=== PATIENT | male | born 1955 | race Caucasian/White ===

== ENCOUNTER → 2017-07-03 | Outpatient (CLI) | payer OTHER ==
[~2017-07-03] MED LIST: ASPI81TA28 PO; CETI10TA84 PO; FERR324T PO; GLUCTAB7 PO; MONT1TAB3 PO; MULT-506 PO; PLMIN90 INH; PRAV20TA PO; PULMICORT INH; WARF1TAB PO
== END | disposition home or self-care (01) ==
LOC: C.CPL 10:58
PROVIDERS: ATTEND Orthopaedic Surgery Sports Medicine
DX: Z01.810 Encounter for preprocedural cardiovascular examination (principal); M19.079 Primary osteoarthritis, unspecified ankle and foot

== ENCOUNTER → 2017-07-15 | Day surgery (SDC) | payer OTHER ==
[2017-07-09 14:49] VITALS: Ht 167.6 cm; Wt 75.0 kg
[~2017-07-15] VITALS: Ht 167.6 cm; Wt 75.0 kg
[~2017-07-15] MED LIST changes: +ACET-1256 PO; +ATROPINE SULFATE 0.1 MG/ML 5ML SYR IV PRN; +CEFAZOLIN 1000MG IV PUSH 7.5 ML IV SCH; +CEFAZOLIN SOD 1 GM VIAL ONE; +CEFAZOLIN SOD 1000MG/7.5 ML IV PUSH IV SCH; +DEXAMETHASONE SOD INJ 4 MG/ML VIAL ONE; +EpHEDrine SULFATE INJ 50 MG/ML AMP IV PRN; +FENTANYL CITRATE INJ 50 MCG/1 ML 2 ML VIAL IV PRN; +FENTANYL CITRATE INJ 50 MCG/1 ML 2 ML VIAL ONE; -FERR324T PO; -GLUCTAB7 PO; +LACTATED RINGER'S 1000ML 1,000 ML IV SCH; +LIDOCAINE HCL 2% 2 ML VIAL (20MG/ML) ONE; +MIDAZOLAM HCL 1 MG/ML 2ML VIAL ONE; +ONDANSETRON INJ 2 MG/ML 2 ML VIAL IV PRN; +ONDANSETRON INJ 2 MG/ML 2 ML VIAL ONE; +PROPOFOL IV EMULSION 10 MG/ML 20 ML VIAL IV ONE; -PULMICORT INH; +SODIUM CHLORIDE 0.9% 1000ML 1,000 ML IV SCH; +TRAM-453 PO; +TRAMADOL HCL 50 MG TAB PO PRN; -WARF1TAB PO
--- NOTE | 2017-07-15 11:12 | History & Physical Bridge - [place] ---
H&P Re-Evaluation Bridge Note: I have examined the patient, reviewed the History & Physical and in the interval since the performance of the History & Physical I have noted the following changes of clinical significance: No changes noted
[2017-07-15] MEDS: BUPIVACAINE/EPINEPHRINE 0.5% MPF 1:200,000 30 ML VIAL ONE ×2 (12:04→12:55)
--- NOTE | 2017-07-15 13:07 | [facility] Post Operative Brief Note ---
Immediate Operative Summary Operative Date Jul 15, 2017. Pre-Operative Diagnosis Right Great Toe Joint Osteoarthritis, Pain Post-Operative Diagnosis Same Procedure(s) Performed Right Great Toe Fusion Surgeon Dr. Santacruz Cable Installer Surgeon(s) Miriam Freeman PA-C Estimated Blood Loss Minimal Findings Consistent with Post-Op Diagnosis Specimens None Drains None Anesthesia Type General Complication(s) none Disposition Accompanied Pt To Recovery: yes Disposition: Recovery Room / PACU
--- NOTE | 2017-07-15 13:12 | Discharge Instructions-SurgCtr ---
Discharge Instructions Date of Service Jul 15, 2017. 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 Post Anesthesia Instructions: If you have had General Anesthesia or IV Sedation: * Do not drive today. * Resume driving when surgeon permits. * Do not make important decisions or sign legal documents today. * Call surgeon for: 1. Temperature elevations greater than 101 degrees F. 2. Uncontrollable pain. 3. Excessive bleeding. 4. Persistent nausea and vomiting. 5. Medication intolerance (nausea, vomiting or rash). * For nausea and vomiting use only clear liquids such as: tea, soda, bouillon until nausea subsides, then gradually increase diet as tolerated. * If you have any concerns or questions, call your surgeon's office. If physician is unavailable and it is an emergency, call 911 or go to the nearest emergency room. . Instructions / Follow-Up Instructions / Follow-Up MEDICATIONS: * Resume previous medications unless instructed otherwise by your surgeon. * Always take pain medication on a full stomach or with food to avoid upset stomach. * Do not drink alcohol or drive while taking narcotics. * Ibuprofen or Tylenol may be taken if narcotic not needed. SPECIAL CARE INSTRUCTIONS: __ None _x_ Keep extremity elevated and iced x 48 hours; apply ice 20-30 minutes 8-10 times/day. May remove at night. __ Crutches __ May discard when able __ Brace/Post-op shoe __ 24 hrs/day __ Remove at night _x_ Dressing _x_ Maintain until seen in office, may shower with plastic over site __ Remove dressings in 24-48 hours and then may shower __ Cover incisions with band-aids after showering __ Do not remove steri-strips Call physician if chills or temperature rises above 102 degrees or pain unrelieved by prescribed pain medications. Office [phone] follow up in 2 weeks Diet Recommendations Home Diet: resume previous diet Procedures Procedures Performed: Right Great Toe Fusion Pending Studies Studies pending at discharge: no Medical Emergencies . Who to Call and When: Medical Emergencies: If at any time you feel your situation is an emergency, please call 911 immediately. . Non-Emergent Contact Non-Emergency issues call your: Surgeon . . "Provider Documentation" section prepared by Ronald Freeman. .
--- NOTE | 2017-07-15 13:20 | DIAGNOSTIC IMAGING REPORT ---
RIGHT FIRST TOE, MIN 2 VIEWS CLINICAL HISTORY: RIGHT GREAT TOE FUSION COMPARISON STUDY: Right foot 04/16/2017. FLUOROSCOPY TIME: 18 seconds.. FINDINGS: 3 fluoroscopic spot images of the right first toe. There is a dorsal cortical plate transfixed with screws and a single screw fusing the first MTP joint. The hardware appears intact. No fracture or dislocation. IMPRESSION: Fluoroscopy provided for fusion of the first MTP joint. Electronically signed by: Leander Lamas M.D. 07/15/2017 1:18 PM Dictated Date/Time: 07/15/2017 1:14 PM
[2017-07-15 14:21] VITALS: TEMP 36.6
[2017-07-15 14:47] VITALS: BP 130/81; PULSE 61; O2SAT 98
--- NOTE | 2017-07-15 15:02 | Anesthesia Progress Nt - [facility] ---
Anesthesia Post Op Note Date & Time Jul 15, 2017 at 14:53 Vital Signs Pain Intensity: 0 Vital Signs Past 12 Hours Date Time Temp Pulse Resp B/P (MAP) Pulse Ox O2 Delivery O2 Flow Rate FiO2 07/15/17 14:47 61 14 130/81 (97) 98 Room Air 07/15/17 14:21 36.6 61 16 132/79 (96) 95 Room Air 07/15/17 14:15 67 21 137/92 99 07/15/17 14:15 68 21 07/15/17 14:11 36.9 65 12 137/92 98 Room Air 07/15/17 14:10 68 20 137/86 98 07/15/17 14:10 69 20 07/15/17 14:07 137/85 07/15/17 14:06 149/100 07/15/17 14:05 72 17 07/15/17 14:05 74 17 98 07/15/17 14:00 63 7 07/15/17 14:00 63 7 141/82 99 07/15/17 13:55 65 2 147/87 94 07/15/17 13:55 65 2 07/15/17 13:50 65 8 126/79 97 07/15/17 13:50 65 8 07/15/17 13:45 69 3 07/15/17 13:45 68 3 136/81 95 07/15/17 13:40 68 17 07/15/17 13:40 70 17 143/95 100 07/15/17 13:35 72 20 07/15/17 13:35 72 20 145/87 100 07/15/17 13:30 80 14 07/15/17 13:30 80 14 153/105 100 07/15/17 13:27 142/97 07/15/17 13:25 83 22 100 07/15/17 13:25 83 22 07/15/17 13:21 136/88 07/15/17 13:20 84 13 07/15/17 13:20 85 13 99 07/15/17 13:16 135/76 07/15/17 13:15 91 16 98 07/15/17 13:15 91 16 07/15/17 13:10 96 155/85 98 07/15/17 13:10 96 07/15/17 13:10 36.8 93 16 155/85 97 Mask 6 07/15/17 10:23 36.6 65 16 128/90 (103) 97 Room Air Notes Mental Status: alert / awake / arousable, participated in evaluation Pt Amnestic to Procedure: Yes Nausea / Vomiting: adequately controlled Pain: adequately controlled Airway Patency, RR, SpO2: stable & adequate BP & HR: stable & adequate Hydration State: stable & adequate Anesthetic Complications: no major complications apparent The patient is a 61 y/o male with a hx of Asthma, recent URI and DLD who is s/ p R great toe fusion with Dr. Santacruz. The patient did well intraoperatively with no issues under GA. In recovery, the patient complained of a sharp pain moving from one side of his chest to the upper at about the nipple line. He denied any sensation of pressure, heaviness or squeezing/tightness or association with deep breathing. He also denied nausea, radiation down his arms or up his jaw, shortness of breath, lightheaded or dizziness. His vital signs were all stable. His HR was regular and lungs were clear to auscultation bilaterally. An EKG was done and showed NSR HR 74 with no ischemic changes. The patient's pain subsided on its own within several minutes and never returned. The patient continues to do well in recovery with no complaints. I told him that the pain was likely musculoskeletal in origin versus GI upset/gas as the EKG was normal and it resolved quickly on its own. I did instruct the patient, however to go to the ED if he has any chest pain, shortness of breath, lightheaded or dizziness or with any other concerns. He understands and agrees.
--- NOTE | 2017-07-15 19:04 | OPERATIVE REPORT ---
DATE OF OPERATION: 07/15/2017 SURGEON: Richie Santacruz MD TRANSMISSION CALIBRATION ENGINEER: DALTON Ceja PREOPERATIVE DIAGNOSIS: Right great toe first metatarsophalangeal degenerative joint disease. POSTOPERATIVE DIAGNOSIS: Same. PROCEDURE PERFORMED: Right first MTP joint arthrodesis. COMPLICATIONS: None. ESTIMATED BLOOD LOSS: Minimal. TOURNIQUET TIME: 61 minutes at 300 mmHg. ANESTHESIA: General. SPECIMENS: None. OPERATIVE INDICATIONS: The patient is a 61-year-old gentleman who has a several year history of increasing right great toe pain and discomfort, stiffness. He has been through extensive conservative treatment and failed. His x-ray showed extensive arthritis of his first MTP joint. The patient indicates for arthrodesis. OPERATIVE IMPLANTS: Operative implants consisted of: 1. A Biomet 4.0 x 34 mm partially threaded titanium cannulated screw. 2. A Biomet 2.4 mm ALPS right first MTP joint arthrodesis plate. 3. A 2.4 mm titanium cortical screw. 4. A 2.4 mm cortical locking screws x6. OPERATIVE PROCEDURE: The patient taken to the operating room, identified, and placed on the operative table in supine position. All contact areas were appropriately padded. IV antibiotics provided by anesthesia team. General anesthetic was implemented by anesthesia team. A right thigh tourniquet was then placed. The right ankle was then cleaned with alcohol. I then performed an ankle block using about 23 mL of 0.5% Marcaine with epinephrine. The right foot, ankle, and leg were then prepped and draped in usual sterile fashion. The right leg was elevated and exsanguinated with Esmarch and tourniquet was placed at 300 mmHg. A dorsal medial approach to the first MTP joint was then performed through a longitudinal incision beginning at the IP joint of the toe and extending proximally over the MTP joint and then proximal about 4 cm. Sharp dissection was carried out through the subcutaneous tissue down to the level of the MTP joint capsule. I then made an incision just medial to the EHL tendon about 3 mm extended this distally almost all the way to the IP joint as his proximal phalanx was quite small and then proximally over the distal portion of the metatarsal. I then skeletonized the MTP joint. I then used a rongeur to debride the osteophytes off the proximal portion of the proximal phalanx as well as the metatarsal head. I then placed a 1.6 mm guidewire in the central aspect of the metatarsal head and then over reamed this with a 22 mm cone reamer followed by the 20 mm which seemed to be the most appropriate size for this gentleman. I then used the 1.6 guidewire to create multiple drill holes in the distal aspect of the metatarsal head for bleeding and bony healing. Attention was then drawn to the proximal phalanx. A 1.6 guidewire was placed in the central aspect of the proximal phalanx joint surface. I then used a 20 mm cup reamer to remove the cartilage of the proximal phalanx and create a mating surface to the metatarsal head. Once this was complete, I used 1.[address] some additional drill holes in the proximal phalanx. I then irrigated the wound extensively. I then placed a 1.6 mm guidewire from inside the joint in the central aspect of the metatarsal head and then proximally and medially at the mid aspect of the metatarsal. This was then withdrawn, the MTP joint was placed in optimal alignment in about 5-10 degrees of valgus and about 20 degrees of dorsiflexion and the guidewire was advanced over this. I verified the position of this and was measured. I then used the cannulated drill to drill the near cortex and then placed a 34 mm partially threaded 4.0 titanium cannulated screw. This provided excellent fixation. I then contoured the 2.4 mm MTP joint fusion plate to the dorsal aspect of the construct. It did not require much contouring. I then fixed it proximally with a single 2.4 mm cortical screw. It was then fixed distally with three 2.4 mm cortical locking screws and then proximally with three additional 2.4 mm cortical locking screws. X-ray was brought in. All screws were of appropriate length. Attention was then drawn toward closing. I irrigated the wound extensively. I then did place some bone graft from the osteophytes around the joint surface, particularly laterally. I then just closed the joint capsule with 2-0 Vicryl suture in a [id number] fashion. The tourniquet was then let down for a tourniquet time of 61 minutes. Hemostasis was assured with use of electrocautery. The subcutaneous tissue was then closed with 2-0 Dexon suture in a buried interrupted fashion. Skin was then closed with 4-0 nylon suture in a horizontal mattress fashion. The toe was then cleaned and dried and a sterile dressing of Xeroform, 4 x 4's, sterile cast padding and a Coban wrap followed by an IPOS shoe were applied. The patient then brought out of general anesthesia and transferred to the recovery room in stable condition. The patient tolerated the procedure with no complications. All needle and sponge counts were correct at the end of the operation. I attest to the content of the Intraoperative Record and any orders documented therein. Any exception s are noted below.
== END | disposition home or self-care (01) ==
LOC: X.SURG 10:10
PROVIDERS: ATTEND Orthopaedic Surgery Sports Medicine
DX: M19.071 Primary osteoarthritis, right ankle and foot (principal); J45.909 Unspecified asthma, uncomplicated; Z98.890 Other specified postprocedural states; Z79.899 Other long term (current) drug therapy; Z79.82 Long term (current) use of aspirin; Z96.652 Presence of left artificial knee joint

== ENCOUNTER 2023-06-16 10:40 | Observation (INO) ==
--- NOTE | 2023-05-19 09:14 | PAT Medication Instructions ---
Medication Instructions Date of Service May 19, 2023 Home Medications Medication Instructions Recorded ondansetron 4 mg disintegrating 4 mg PO Q4H PRN nausea and 03/25/20 tablet vomiting #8 tabs amoxicillin 500 mg tablet 2,000 mg (4 x 500 mg) PO ONCE #4 03/04/23 tabs acetaminophen 500 mg tablet (Tylenol Extra Strength) 1,000 mg PO Q6H PRN Pain albuterol sulfate 90 mcg/actuation aerosol inhaler 2 puff inhalation Q4H PRN Shortness Of Breath Or Wheezing aspirin 81 mg tablet,delayed release 81 mg PO HS budesonide 180 mcg/actuation breath activated powder inhaler (Pulmicort Flexhaler) 1 inh inhalation BID cetirizine 10 mg tablet (Zyrtec) 10 mg PO HS montelukast 10 mg tablet (Singulair) 10 mg PO HS multivitamin 1 tab PO QAM ondansetron 4 mg disintegrating tablet 4 mg PO Q4H PRN nausea and vomiting pravastatin 20 mg tablet 20 mg PO HS amoxicillin 500 mg tablet 2,000 mg (4 x 500 mg) PO ONCE turmeric root extract 500 mg capsule 500 mg PO QAM Continue as directed amoxicillin 500 mg tablet 2,000 mg (4 x 500 mg) PO ONCE ASK your prescriber and surgeon aspirin 81 mg tablet,delayed release 81 mg PO HS STOP taking 2 weeks before surgery (or as soon as possible if surgery is within 2 weeks) turmeric root extract 500 mg capsule 500 mg PO QAM DO NOT take the morning of surgery multivitamin 1 tab PO QAM Take morning of surgery With a small sip of water, OTHERWISE NOTHING TO EAT OR DRINK AFTER MIDNIGHT: acetaminophen 500 mg tablet (Tylenol Extra Strength) 1,000 mg PO Q6H PRN Pain (if needed) albuterol sulfate 90 mcg/actuation aerosol inhaler 2 puff inhalation Q4H PRN Shortness Of Breath Or Wheezing (use if needed; please bring rescue inhaler with you to hospital day of surgery if possible) budesonide 180 mcg/actuation breath activated powder inhaler (Pulmicort Flexhaler) 1 inh inhalation BID ondansetron 4 mg disintegrating tablet 4 mg PO Q4H PRN nausea and vomiting (if needed) Take evening before surgery acetaminophen 500 mg tablet (Tylenol Extra Strength) 1,000 mg PO Q6H PRN Pain (if needed) albuterol sulfate 90 mcg/actuation aerosol inhaler 2 puff inhalation Q4H PRN Shortness Of Breath Or Wheezing (if needed) budesonide 180 mcg/actuation breath activated powder inhaler (Pulmicort Flexhaler) 1 inh inhalation BID cetirizine 10 mg tablet (Zyrtec) 10 mg PO HS montelukast 10 mg tablet (Singulair) 10 mg PO HS ondansetron 4 mg disintegrating tablet 4 mg PO Q4H PRN nausea and vomiting (if needed) pravastatin 20 mg tablet 20 mg PO HS Other Notes If you have any questions please call us at [phone] or [phone] or [phone] or [phone]
--- NOTE | 2023-05-25 10:51 | Anesthesiology Consultation ---
Date of Service May 25, 2023 Assessment & Plan (1) Encounter for pre-operative examination: - Outpatient joint assessment: Patient is currently scheduled for inpatient pathway. If re-evaluated and patient/surgeon requests outpatient pathway, patient is acceptable candidate for outpatient joint program from anesthesia standpoint pending surgeon's office assessment of pt motivation/support/completion of same day joint program preop requirements. Chart Review Chart Review: Acceptable Risk for Surgery and Patient seen in Pre Admission Testing Teaching & Discussion Pre-Anesthesia Teaching/Discussion Notes: Instructed NPO after midnight before surgery, except medications with 15 cc of water. Medication instructions provided according to the PAT guidelines. History Surgery Operation Date: 06/16/23 09:10 Proposed Procedures p Right Total Knee Arthroplasty - Richie Santacruz MD Height/Weight Height: 5 ft 6 in Weight: 76.6 kg Allergies Allergy/AdvReac Type Severity Reaction Status Date / Time No Known Allergies Allergy Verified 05/19/23 07:37 Medications Home Medications Medication Instructions Recorded Confirmed Last Taken acetaminophen 500 mg tablet 1,000 mg PO Q6H PRN Pain 03/25/20 05/19/23 Unknown (Tylenol Extra Strength) albuterol sulfate 90 mcg/actuation 2 puff inhalation Q4H PRN 03/25/20 05/19/23 Unknown aerosol inhaler Shortness Of Breath Or Wheezing aspirin 81 mg tablet,delayed 81 mg PO HS 03/25/20 05/19/23 Unknown release budesonide 180 mcg/actuation 1 inh inhalation BID 03/25/20 05/19/23 Unknown breath activated powder inhaler (Pulmicort Flexhaler) cetirizine 10 mg tablet (Zyrtec) 10 mg PO HS 03/25/20 05/19/23 Unknown montelukast 10 mg tablet 10 mg PO HS 03/25/20 05/19/23 Unknown (Singulair) multivitamin 1 tab PO QAM 03/25/20 05/19/23 Unknown ondansetron 4 mg disintegrating 4 mg PO Q4H PRN nausea and 03/25/20 05/19/23 Unknown tablet vomiting #8 tabs pravastatin 20 mg tablet 20 mg PO HS 03/25/20 05/19/23 Unknown amoxicillin 500 mg tablet 2,000 mg (4 x 500 mg) PO ONCE #4 03/04/23 05/19/23 Unknown tabs turmeric root extract 500 mg 500 mg PO QAM 05/19/23 05/19/23 Unknown capsule Past Medical History Medical History (Updated 05/25/23 @ 11:01 by Luisana Crook PA-C) Asthma daily inh; prn inhaler last used in 2019 Elevated BP without diagnosis of hypertension History of COVID-2019, tested at [place]-taken to [place] ER, not hosp; SOB w/low O2 sats>resolved Hyperlipidemia Patient denies h/o stroke, seizures, heart attack, heart failure, DM, blood clots/DVTs or blood transfusions. Exercise / Class Metabolic Activity II 4-5 Yardwork/Stairs/Walk up hill (denies chest discomfort or shortness of breath with 1 FOS) Past Surgical History Surgical History History of left knee replacement Hx laparoscopic cholecystectomy Hx of anterior cruciate ligament tear reconstruction lt knee Hx of appendectomy Hx of colonoscopy Hx of foot surgery x1 on each foot Hx of left knee surgery many yrs ago-open meniscus repair Past Anesthesia History No Hx of Anesthesia Complications and No Family Hx of Anesthesia Complications History of PONV No Hx of PONV and No Hx of Motion Sickness Social History Smoking Status: Never smoker Do You Dip or Chew Tobacco: No (quit 1997; advised) Hx Alcohol Use: Yes alcohol intake frequency: holidays/special occasions only Hx Substance Use: No substance use type: does not use Review of Systems Patient denies chest pain, shortness of breath, dyspnea on exertion, snoring, witnessed apneas, reflux, fever, chills, cough, wheezing, or palpitations. Physical Exam Vital Signs Vitals BP 149/88 P 67 TEMP 97.8 SP02 96% on RA RESP 17 Physical Patient resting comfortably in chair in no acute distress, alert and oriented, responding appropriately throughout visit Full cervical extension range of motion without pain TMD 3.5 finger breadths Mallampati Score 2 Dentition: several caps/crowns, permanent upper bridges sides bilat, and front upper implant; denies chipped or loose teeth Lungs: normal respiratory effort. Good air movement, clear throughout to auscultation, no adventitious breath sounds Cardiac: regular rate and rhythm, no murmurs noted Carotid arteries: negative bruit bilat Lab Results Anesthesia Preop Results Results Anesthesia Widget: WBC 6.67 K/ul (4.8-10.8) 05/25/23 Hgb 14.1 g/dl (14.0-18.0) 05/25/23 Hct 40.8 % (42.0-52.0) L 05/25/23 Plt 244 K/uL (130-400) 05/25/23 Na 138 mmol/L (136-145) 05/25/23 K 4.2 mmol/L (3.5-5.1) 05/25/23 Cl 104 mmol/L (98-107) 05/25/23 CO2 29 mmol/L (21-32) 05/25/23 BUN 21 mg/dl (6-23) 05/25/23 Creat 0.99 mg/dl (0.6-1.4) 05/25/23 Glucose Level 82 mg/dl (70-99(Fasting)) 05/25/23 PT 10.4 Seconds (9.0-12.0) 05/25/23 PTT 28 Seconds (21-31) 05/25/23 INR 0.9 (0.9-1.1) 05/25/23 Blood Type B Positive 05/25/23 Antibody Screen NEGATIVE 05/25/23 Testing Electrocardiogram Date: 05/25/23 NSR, rate 60 bpm Chest X-Ray Date: 05/25/23 No acute chest disease.
--- NOTE | 2023-06-14 08:43 | History & Physical Report ---
Date of Service June 14, 2023 Assessment & Plan (1) Right knee DJD: 67-year-old active healthy middle-age male status post a left knee replacement 10 years ago with advanced right knee DJD. Is happy with the left knee. Failed conservative treatment the right knee would like to have his right knee replaced. Plan: We are going to take him to the operating do a right total knee replacement. The risks Mente this procedure explained the patient clued but not limited to DVT PE infection neurological and vascular injury bleeding palm pain limb range of motion sepsis fairly with symptoms incomplete relief of symptoms excetra. The patient understands and desires to proceed. Informed consent was obtained. With his valgus deformity he is a slight increased risk of a peroneal nerve palsy. Will do all we can do a limit that. He will likely need some degree of lateral release. As far as discharge plans explained to be discharged home. He will use [facility] home health program. Plan on DVT prophylaxis including thigh-high teds, SCDs, aspirin twice a day for 6 weeks. (2) History of left knee replacement: History of Present Illness Chief Complaint: . Right knee pain, discomfort, and swelling. Primary Care Provider: Todd Bolaños . Patient is a 67-year-old gentleman well-known to me from previous treatment of his left knee. He had a left knee replacement done about 10 years ago after having the ACL reconstruction prior to that. Over the past several year he has developed increased pain, discomfort, and swelling in his right knee. Describes gotten worse over time. Is been through extensive conservative treatment including multiple aspirations and injections which have become less successful over time. He is got global pain in the knee. The more he walks the more it hurts. Limps more as the day goes on. Happy with the left knee and would like to have his right knee fixed. Allergies Allergy/AdvReac Type Severity Reaction Status Date / Time No Known Allergies Allergy Verified 05/19/23 07:37 Home Medications Medication Instructions Recorded Confirmed Type acetaminophen 500 mg tablet 1,000 mg PO Q6H PRN Pain 03/25/20 05/19/23 History (Tylenol Extra Strength) albuterol sulfate 90 mcg/actuation 2 puff inhalation Q4H PRN 03/25/20 05/19/23 History aerosol inhaler Shortness Of Breath Or Wheezing aspirin 81 mg tablet,delayed 81 mg PO HS 03/25/20 05/19/23 History release budesonide 180 mcg/actuation 1 inh inhalation BID 03/25/20 05/19/23 History breath activated powder inhaler (Pulmicort Flexhaler) cetirizine 10 mg tablet (Zyrtec) 10 mg PO HS 03/25/20 05/19/23 History montelukast 10 mg tablet 10 mg PO HS 03/25/20 05/19/23 History (Singulair) multivitamin 1 tab PO QAM 03/25/20 05/19/23 History ondansetron 4 mg disintegrating 4 mg PO Q4H PRN nausea and 03/25/20 05/19/23 Rx tablet vomiting #8 tabs pravastatin 20 mg tablet 20 mg PO HS 03/25/20 05/19/23 History amoxicillin 500 mg tablet 2,000 mg (4 x 500 mg) PO ONCE #4 03/04/23 05/19/23 Rx tabs turmeric root extract 500 mg 500 mg PO QAM 05/19/23 05/19/23 History capsule Past Med/Surg History Medical History Elevated BP without diagnosis of hypertension History of COVID-19 2019, tested at [place]-taken to [place] [facility], not hosp; SOB w/low O2 sats>resolved Asthma daily inh; prn inhaler last used in 2019 Hyperlipidemia Surgical History Hx of anterior cruciate ligament tear reconstruction lt knee Hx of left knee surgery many yrs ago-open meniscus repair Hx of foot surgery x1 on each foot Hx of appendectomy Hx laparoscopic cholecystectomy Hx of colonoscopy History of left knee replacement Social History Smoking Status: Never smoker Second Hand Exposure: No; Do You Dip or Chew Tobacco: No (quit 1997; advised); Tobacco Cessation Education Requested by Patient: No Hx Alcohol Use: Yes Hx Substance Use: No Preferred Language: Lao Communication Ability: Effective [employer] Guidance Counselor Required: No Beliefs That Will Affect Care: None Current Living Situation: Spouse and Family Other Information That Helps Us Care for You: No Feels Safe at Home: Yes Safety Concerns: Feels Safe At This Time Assistive Devices: Crutches, Denture - Lower, Glasses and Hearing Aid - Bilateral Assistive Devices Comment: partial dentures upper/lower Review of Systems All systems reviewed & are unremarkable except as noted in HPI & below. Physical Exam . Physical examination reveals a pleasant healthy middle-age male. Looks in excellent health. Examination of the right knee reveal patient walks a bit of a limp he is got valgus alignment to his knee which is increased with weightbearing. He is got tenderness laterally. Range of motion about 10 degrees short full extension to 125 degrees of flexion. There is no gross instability. No particular pain with hip motion. Constitutional WD/WN, vitals as above Neck trachea midline, no thyromegaly Respiratory normal respiratory effort, lungs clear to auscultation Cardiovascular RRR, no murmur, no edema Gastrointestinal (Abdomen) normal bowel sounds, soft, nontender, no hepatosplenomegaly Results & Data Results & Data Laboratory Results . Diagnostic Findings . X-rays of the right knee reviewed. Shows advanced right knee lateral compartment DJD. He is got complete loss of his lateral joint space but is got osteophytes primarily laterally. A little bit of subchondral sclerosis. X-rays of the left knee reveal well-positioned well-functioning knee replacement. No signs of problems. PG Care Time/CCT Total # of Minutes Spent Total Time Spent with Patient: Total time spent is greater than 50% in coordination of care (as documented) at patient's floor/unit and/or counseling patient: Coding Level of Care Code None Diagnoses Right knee DJD M17.11 History of left knee replacement Z96.652
[~2023-06-16 10:40] MED LIST changes: -ACET-1256 PO; -ASPI81TA28 PO; -ATROPINE SULFATE 0.1 MG/ML 5ML SYR IV PRN; -CEFAZOLIN 1000MG IV PUSH 7.5 ML IV SCH; -CEFAZOLIN SOD 1 GM VIAL ONE; -CEFAZOLIN SOD 1000MG/7.5 ML IV PUSH IV SCH; -CETI10TA84 PO; -DEXAMETHASONE SOD INJ 4 MG/ML VIAL ONE; -EpHEDrine SULFATE INJ 50 MG/ML AMP IV PRN; -FENTANYL CITRATE INJ 50 MCG/1 ML 2 ML VIAL IV PRN; -FENTANYL CITRATE INJ 50 MCG/1 ML 2 ML VIAL ONE; -LACTATED RINGER'S 1000ML 1,000 ML IV SCH; -LIDOCAINE HCL 2% 2 ML VIAL (20MG/ML) ONE; -MIDAZOLAM HCL 1 MG/ML 2ML VIAL ONE; -MONT1TAB3 PO; -MULT-506 PO; -ONDANSETRON INJ 2 MG/ML 2 ML VIAL IV PRN; -ONDANSETRON INJ 2 MG/ML 2 ML VIAL ONE; -PLMIN90 INH; -PRAV20TA PO; -PROPOFOL IV EMULSION 10 MG/ML 20 ML VIAL IV ONE; +ROPIVACAINE 0.5% 5 MG/ML 30 ML VIAL ONE; -SODIUM CHLORIDE 0.9% 1000ML 1,000 ML IV SCH; +Scopolamine 1 MG TDSY TD SCH; -TRAM-453 PO; -TRAMADOL HCL 50 MG TAB PO PRN; +TRANEXAMIC ACID 1,000 MG x 1 **TOPICAL Use Intraop TOP SCH; +dexAMETHasone**PF** 10 MG/ML VIAL IV SCH
--- NOTE | 2023-06-16 10:47 | History & Physical Bridge Note ---
Date of Service June 16, 2023 History & Physical Bridge Note I have examined the patient, reviewed the History & Physical and in the interval since the performance of the History & Physical I have noted the following changes of clinical significance: no changes noted
[2023-06-16] MEDS: LR 500ML BOLUS, THEN 15ML/HR IV SCH (11:30)
[2023-06-16] MEDS: LR 60ML/HR IV SCH (11:34)
[2023-06-16] MEDS ORDERED: MIDAZOLAM HCL 1 MG/ML 2ML VIAL ONE (11:40)
[2023-06-16] MEDS ORDERED: PROPOFOL IV EMULSION 10 MG/ML 20 ML VIAL IV ONE ×2 (11:40→13:50)
[2023-06-16] MEDS: FAMOTIDINE 20 MG TAB PO SCH (11:54)
[2023-06-16] MEDS: METOCLOPRAMIDE HCL 10 MG TABLET PO SCH (11:54)
[2023-06-16] MEDS: CeleBREX 200 MG CAP PO SCH (11:54)
[2023-06-16] MEDS: ACETAMINOPHEN 500 MG TAB PO SCH ×2 (11:54→20:23)
[2023-06-16] MEDS: ceFAZolin 2000MG 2,000 MG/15 ML SYR IV SCH (13:21)
[2023-06-16] MEDS ORDERED: KETOROLAC 30 MG/ML VIAL ONE (13:29)
[2023-06-16] MEDS ORDERED: ONDANSETRON INJ 2 MG/ML 2 ML VIAL ONE (13:29)
[2023-06-16] MEDS: ROPIV 0.5% 246mg, Ketorolac 30mg, EPINEPHrine 0.5mg in NSS INFIL SCH (13:53)
[2023-06-16] MEDS: ORTHO JOINT ANESTHETIC ONE (13:53)
[2023-06-16] MEDS: TRANEXAMIC ACID 1,000 MG **IV Intra-op IV SCH (14:17)
[2023-06-16] MEDS ORDERED: ONDANSETRON INJ 2 MG/ML 2 ML VIAL IV PRN ×2 (15:14→16:12)
[2023-06-16] MEDS ORDERED: ePHEDrine sulfate 50 MG/ML AMP IV PRN (15:14)
[2023-06-16] MEDS ORDERED: ATROPINE SULFATE 0.1 MG/ML 10ML SYR IV PRN (15:14)
[2023-06-16] MEDS ORDERED: fentaNYL citrate PF 100 MCG/2 ML VIAL IV PRN (15:14)
[2023-06-16] MEDS ORDERED: HYDROmorphone INJ 2 MG/ML SYR/VIAL IV PRN (15:14)
--- NOTE | 2023-06-16 15:16 | Operative Report ---
PG Post Operative Report Pre & Post Diagnosis Operation Date: 06/16/23 12:30 Pre-Op Diagnosis: Right Knee Degenerative Joint Disease Post-Op Diagnosis: Right Knee Degenerative Joint Disease I identified the patient and participated in the time-out.: Yes Procedure Operation Date: 06/16/23 12:30 Actual Procedures p Right Total Knee Arthroplasty(Right) - Richie Santacruz MD Surgeon Richie Santacruz MD Inspector Ball Points López Freeman PA-C Estimated Blood Loss 50 Findings Consistent with Post-Op Diagnosis Operative findings revealed Advanced right knee DJD. He had extensive grade 4 [id number] disease and eburnation of the lateral compartment. He had a fixed valgus deformity to his knee in a slight flexion contracture. Moderate-sized joint effusion.Advanced right knee DJD Specimens Right knee sent for pathology. Anesthesia Type Spinal MAC Complications none Disposition Accompanied Patient To Recovery: No Indications The patient is a 67-year-old very active gentleman has had a long history of knee problems. He had a left knee reconstruction/replacement by 11 years ago and done well from this. Over the past several years she developed increased pain discomfort and deformity to his right knee. He failed conservative measures. X-rays show advanced right knee lateral compartment DJD. He elected proceed with surgical treatment. Description of Procedure Operative implants consist of: 1. Biomet Vanguard size 67.5 right posterior stabilized femoral component. 2. Biomet size 75 tibial tray. 3. 10 mm post stabilized polyethylene insert. 4. 31 x 8 all poly patella. The patient was taken the operating, identified, placed on the operating table in supine position but all contact areas were appropriately padded. IV antibiotics tried by anesthesia team. A spinal anesthetic and been implemented holding area along with a adductor canal block. Right thigh tent was then placed. The right lower extremity was then prepped and draped in usual sterile fashion. The right leg was elevated exsanguinated with use of an Esmarch and tourniquet placed at 3 mmHg. An anterior approach to the right knee was then performed through a longitudinal incision centered over the patella. Sharp dissection was carried through subcutaneous tissue down the extensor mechanism. A medial parapatellar arthrotomy incision was made. Some subperiosteal dissection was carried out medially. The fat pad was resected from Neath patella tendon. Lateral patellofemoral ligament was released. Patella was subluxated laterally and the knee was flexed. The osteophytes taken on distal femur. The ACL and PCL were then released from the distal femur the tibia subluxated anteriorly. The external tibial alignment jig was then placed on the anterior face of the tibia and adjusted 10 mm medially. Proximal tibial cut was made remove about 3 to 4 mm of bone from the medial side. The tibia sized to a size 75. Attention drawn the femur. Distal femur examined with a sharp drill. Intramedullary guide was placed. A right 5 degree valgus cutting guide was placed. The distal femoral cutting block was pinned in place. It was suggested to take an additional 5 mm of bone off distal femur due to his flexion contracture. The distal femoral cut was made. I brought the knee out in extension and did release some of the IT band graft taking great care to protect the peroneal nerve at all times. The knee was flexed. The femur was then sized to a size 67.5. The AP cutting block was pinned parallel to the epicondylar axis which was 7 degrees of external rotati on. The anterior cut, anterior chamfer, posterior cut, posterior chamfer cuts were made. The box cutting guide was placed in a just slight lateral and the box cut was made. The knee was flexed. The remnants of the medial and lateral menisci were excised. The osteophytes were taken off the posterior aspect of the femur. I did release the popliteus tendon in order to equalize the flexion gap. A trial femoral component was placed. The tibial tray was pinned Zahraa external rotation and the drill and stem punch were used to create defect in proximal tibia for the tibial tray. The knee was then trialed and the 10 mm insert fit most appropriately. Attention drawn the patella. The patella was cleaned of all soft tissues. Patella thickness measured 23 mm in thickness was cut down to 14. Was sized to a size 31 patella. The lug holes were drilled for the 31 patella. The lateral osteophyte was removed. Patella button was placed. Knee was taken through range of motion patella tracked nicely with no thumbs test. Attention drawn to placing the permanent components. All trial components were removed. Bone plug was placed in the distal femur limit blood loss. A double batch Palacos G cement was mixed. BiomInterfolioard size 67.5 right Po stabilized femoral component, a size 75 tibial tray, a 10 mm post stabilized polyethylene insert, and a 31 x 8 all poly patella then cemented in place. The knee was brought out into full extension till cement hardened. Final cement check was then performed. The pericapsular tissues were injected with a total of 100 cc ofOrthopedic joint mix.Patient did receive 1 g tranexamic acid. The tourniquet was let down for final tourniquet time 57 minutes. Hemostasis assured use electrocautery. Extensor Metros then closed with combination 1 PDS suture #1 Vicryl suture in a [id number] fashion. Extensor Meclomen checked found to be intact. Subcutaneous tissues then closed with 2 Dexon suture in buried interrupted fashion and the skin was closed skin flor. Patient then transferred to the recovery room in stable condition. Patient tolerated procedure well and there were no complications. López Freeman, my physician enrichment assistant, was present for the entire procedure. His assistance was essential and required for appropriate patient positioning, prepping and draping, surgical exposure, performing the technical details of the operation, placement the implants, closure of the wound, and placement of the sterile bandage. I attest to the content of the Intraoperative Record and any orders documented therein. Any exceptions are noted below.
--- NOTE | 2023-06-16 15:31 | XRay Report ---
XR knee RT 1 or 2V routine CLINICAL HISTORY: Postoperative evaluation. COMPARISON: Right radiographs February 16, 2023. FINDINGS: Alignment of the total right knee arthroplasty is anatomic. There is no periprosthetic fra cture or unexpected radiopaque foreign body. There are skin flor. IMPRESSION: Expected findings following total right knee arthroplasty. ACT 112: Negative or not required by law. Electronically signed by: Juan Carlos East M.D. 06/16/2023 3:30 PM
--- NOTE | 2023-06-16 15:33 | Anesthesiology Progress Note ---
Date of Service June 16, 2023 Anesthesia Post Procedure Vital Signs Vital Signs: Temp Pulse Resp BP Pulse Ox O2 Del Method O2 Flow Rate 06/16/23 15:25 77 12 100/62 99 Oxymask 3 06/16/23 15:15 90 8 L 115/57 L 94 Oxymask 3 06/16/23 15:05 36.7 C 100 H 12 110/68 95 Oxymask 5 06/16/23 11:36 36.5 C 64 20 151/91 H 95 Room Air Pain Intensity Right Knee: Pain Intensity: 0 Transfer of Care Handoff Completed per policy Notes Mental Status: alert / awake / arousable and participated in evaluation Patient Amnestic to Procedure: Yes Nausea / Vomiting: adequately controlled Pain: adequately controlled Airway Patency, RR, SpO2: stable & adequate BP & HR: stable & adequate Hydration State: stable & adequate Anesthetic Complications: no major complications apparent and Pt Satisfied with anesthetic care
[2023-06-16] MEDS: SODIUM CHLORIDE 0.9% 1,000 ML IV SCH (16:00)
[2023-06-16] MEDS ORDERED: Scopolamine CHECK PATCH PLACEMENT SCH (16:00)
[2023-06-16] MEDS ORDERED: ALUMINUM/MAGNESIUM SUSP 30 ML UDC PO PRN (16:12)
[2023-06-16] MEDS ORDERED: MAGNESIUM HYDROXIDE SUSP 30 ML UDC PO PRN (16:12)
[2023-06-16] MEDS ORDERED: NALOXONE HCL 0.4 MG/1 ML VIAL/CARP IV PRN (16:12)
[2023-06-16] MEDS ORDERED: bisacodyL 10 MG SUPP PR PRN (16:12)
[2023-06-16] MEDS ORDERED: NON-FORMULARY MEDICATION (Amoxicillin 500 mg tablet) PO SCH (16:12)
[2023-06-16] MEDS ORDERED: ALBUTEROL HFA 8 GM INHALER INH PRN (16:12)
[2023-06-16] MEDS ORDERED: METOCLOPRAMIDE HCL INJ 5 MG/ML 2 ML VIAL IV PRN (16:12)
[2023-06-16] MEDS ORDERED: oxyCODONE HCL IR 5 MG TAB (IMMEDIATE RELEASE) PO PRN (16:12)
[2023-06-16] MEDS ORDERED: HYDROmorphone INJ 0.5 MG/0.5 ML SYR IV PRN (16:12)
[2023-06-16] MEDS ORDERED: KETOROLAC 30 MG/ML VIAL IV SCH (17:00)
[2023-06-16] MEDS: ASCORBIC ACID 500 MG TAB PO SCH (17:05)
[2023-06-16] MEDS: CETIRIZINE HCL 10 MG TABLET PO SCH (20:23)
[2023-06-16] MEDS: KETOROLAC TROMETHAMINE 15 MG/ML VIAL IV SCH (20:23)
[2023-06-16] MEDS: PRAVASTATIN SOD 20 MG TAB PO SCH (20:23)
[2023-06-16] MEDS: ASPIRIN 81 MG ECTAB PO SCH (20:23)
[2023-06-16] MEDS: MONTELUKAST SODIUM 10 MG TABLET PO SCH (20:23)
[2023-06-16] MEDS: SENNA 8.6 MG TAB PO SCH (20:23)
[2023-06-16] MEDS: DOCUSATE SODIUM 100 MG CAP PO SCH (20:23)
[2023-06-16] MEDS: TRANEXAMIC ACID / 0.7% NACL 1,000 MG/100 ML BAG IV SCH (20:24)
[2023-06-16] MEDS: ceFAZolin 1000MG 1,000 MG/7.5 ML SYR IV SCH (20:33)
[2023-06-16] MEDS ORDERED: SENNA 8.6 MG TAB PO SCH (21:00)
[2023-06-17] MEDS: PNEUMOCOCCAL VACCINE (PCV20) 20-VAL CONJ-DIP CRM/PF 0.5 ML SYR IM ONE (04:44)
[2023-06-17] MEDS: dexAMETHasone 10 MG in SYRINGE 0 ML IV SCH (08:28)
[2023-06-17] MEDS: TAMSULOSIN HCL 0.4 MG CAP PO SCH (08:29)
[2023-06-17] MEDS: FLUTICASONE FUROATE 100MCG 14 PUFFS/INHALER INH SCH (08:29)
[2023-06-17] MEDS: MULTIVITAMIN TAB PO SCH (08:29)
[2023-06-17] MEDS ORDERED: NON-FORMULARY MEDICATION (Turmeric Root Extract 500 mg Capsule) PO SCH (09:00)
[2023-06-17] MEDS ORDERED: NON-FORMULARY MEDICATION (Multivitamin Tablet) PO SCH (09:00)
[2023-06-17 09:34] LABS: Hematocrit (blood only) 36.4 % (42.0-52.0); Hemoglobin 12.5 g/dl (14.0-18.0); Mean Corpuscular Hemoglobin 30.9 pg (25.0-34.0); Mean Corpuscular Hgb Conc 34.3 g/dL (32.0-36.0); Mean Corpuscular Volume 90.1 fL (80.0-100.0); Mean Platelet Volume 10.5 fL (9.4-12.4); Platelet Count 174 K/uL (130-400); RDW Coefficient of Variation 12.1 % (11.5-14.5); Red Blood Count 4.04 M/uL (4.70-6.10)
[2023-06-17 09:53] LABS: BUN Creatinine Ratio 14.2 (10-20); Calcium 8.4 mg/dl (8.6-10.3); Creatinine Clr Calc Pharmacy 62.7 ml/min; Est GFR (African American) 84.9 ml/min; Est GFR (Non-African American) 73.3 ml/min; Potassium 3.9 mmol/L (3.5-5.1)
--- NOTE | 2023-06-17 10:09 | Orthopedic Progress Note ---
Date of Service June 17, 2023 Assessment & Plan (1) Status post right knee replacement: Overall, he is doing quite well today with good pain control of the right knee. He will be seen by physical therapy later this morning to work on ambulation and range of motion exercises. He is on aspirin for DVT prophylaxis. He can be discharged home later this morning pending physical therapy evaluation. He will follow-up in [address] Santacruz for postoperative management. The patient was seen and examined by myself Richie Santacruz. Patient is doing well. Has not done therapy yet. Plan is to discharge to home if he does okay in therapy today. He is neurologically intact. Pain is controlled. Subjective . Joseluis was seen and evaluated this morning resting comfortably in bed in no apparent distress. He notes that his pain is well-controlled to the right knee. He has been up and out of bed with no significant discomfort. He has yet to be seen by physical therapy. He denies any other concerns today. Review of Systems All systems reviewed & are unremarkable except as noted in HPI & below. Physical Exam . On physical examination of the right lower extremity, his dressing is clean, dry, and intact. His leg is out in full extension. He has active plantarflexion dorsiflexion of the right ankle. +2 DP and PT pulses. Less than 2-second capillary refill. Normal sensation. Neurovascular intact. Results & Data Results & Data Laboratory Results . Diagnostic Findings . Postoperative x-rays of the right knee show prosthesis to be anatomical alignment with no signs of fracture complication or loosening. PG Care Time/CCT Total # of Minutes Spent Total Time Spent with Patient: Total time spent is greater than 50% in coordination of care (as documented) at patient's floor/unit and/or counseling patient: Coding Level of Care Code 64593 Post Operative Follow-Up Diagnoses Status post right knee replacement Z96.651
--- NOTE | 2023-06-17 10:10 | Discharge Summary ---
Date of Service June 17, 2023 Admission HPI (Per Admitting) . Patient is a 67-year-old gentleman well-known to me from previous treatment of his left knee. He had a left knee replacement done about 10 years ago after having the ACL reconstruction prior to that. Over the past several year he has developed increased pain, discomfort, and swelling in his right knee. Describes gotten worse over time. Is been through extensive conservative treatment including multiple aspirations and injections which have become less successful over time. He is got global pain in the knee. The more he walks the more it hurts. Limps more as the day goes on. Happy with the left knee and would like to have his right knee fixed. Admission Exam (Per Admitting) . Physical examination reveals a pleasant healthy middle-age male. Looks in excellent health. Examination of the right knee reveal patient walks a bit of a limp he is got valgus alignment to his knee which is increased with weightbearing. He is got tenderness laterally. Range of motion about 10 degree s short full extension to 125 degrees of flexion. There is no gross instability. No particular pain with hip motion. Principal Diagnosis Same as "Discharge Diagnosis" noted below under Discharge Instructions. Discharge Exam . On physical examination of the right lower extremity, his dressing is clean, dry, and intact. His leg is out in full extension. He has active plantarflexion dorsiflexion of the right ankle. +2 DP and PT pulses. Less than 2-second capillary refill. Normal sensation. Neurovascular intact. Discharge Data Procedures Performed Operation Date: 06/16/23 12:30 Actual Procedures p Right Total Knee Arthroplasty(Right) - Richie Santacruz MD Ordered Studies 06/16/23 05:00 US - OR guided needle placemen Routine Hospital Course (1) Status post right knee replacement: On June 16, 2023 Joseluis arrived at [facility] and underwent a right total knee arthroplasty performed by Dr. Santacruz with no complications. He had a spinal anesthetic. Postoperatively, he was started on aspirin for DVT prophylaxis and transferred to the general orthopedic floor in stable condition. His hospital course was uneventful. On postoperative day #1, his vital signs were stable and his pain was well-controlled. He participated well with physical therapy working on ambulation and range of motion exercises. He was then discharged home in stable condition. He will follow-up with Dr. Santacruz in 2 weeks for postoperative management. PG Care Time/CCT Total # of Minutes Spent Total Time Spent with Patient: Total time spent is greater than 50% in coordination of care (as documented) at patient's floor/unit and/or counseling patient: Discharge Plan Discharge Items Patient Disposition: Home - Home Health Services Reason For Visit: RIGHT KNEE REPLACEMENT Discharge Diagnosis: Right Knee Replacement Activity: Per Instructions section Weightbearing: Full weightbearing Non-emergency contact: Surgeon Call non-emergency contact if: you have any medication questions Follow-up/Referrals: Todd Bolaños [Outside Practitioners] - Diet: Regular Addtl Attending Provider Instructions: ACTIVITY RECOMMENDATIONS: Physical Therapy: * You will go to physical therapy three times each week for four to six weeks after your surgery in order to regain your knee range of motion and to retrain your knee to work properly. * It is just as important to make sure you are getting your knee perfectly straight as it is to regain your knee bend. * Taking a pain pill an hour before therapy can help you have a more productive and comfortable therapy session. Home Exercise: * You were shown a series of exercises (heel props, heel slides, etc.) in the hospital. Do these exercises three to four times each day including the exercises you were shown in physical therapy. Walking: * Get up and walk several times each day. For the first four weeks, try not to stand or walk for more than one hour at a time. If you do stand or walk for more than one hour, you will not hurt anything, but your knee and leg will likely swell. * As you feel comfortable, you may change from the walker or crutches to a cane and then to independent walking. MEDICATIONS: New Medicine: * You will likely be taking one or more of these medications: 1. Oxycodone - A quick and shorter-acting pain medication. Take one to two tablets every six hours to lessen your pain. 2. Aspirin - Thins your blood to lessen the chance of forming a blood clot. * The most common side effects of pain medicine and iron are nausea and constipation. If nausea or constipation is too much of a problem or if you have any questions about your new medicines or doses, call [facility] at [phone]. We will try to help you manage these issues. "VERY IMPORTANT TO READ AND REVIEW" Pain: * The immediate post-operative period after knee replacement surgery is often quite painful. * You are given a prescription for pain medicine. You should take it, as directed, when you need it, especially before physical therapy and before going to bed. Pain that interferes with sleep is very common and can last several months. * You will likely need pain medicine for the first four to six weeks. It will not stop all of the pain. The pain will lessen and as you feel better, you may change to milder pain medicine such as Tylenol. * The most common side effects of pain medicine are nausea and constipation, so don't take more than you need. SPECIAL CARE INSTRUCTIONS: TEDs/Elastic Stockings: * The white elastic stockings help limit swelling and prevent blood clots from forming in your legs. The more you wear them, the more they work. * Wear them for six weeks after knee replacement surgery and four weeks after partial knee replacement. Incision Site Care: * Remove dressing postoperative day 2 and then shower. Keep direct shower pressure off the incision site. * After showering, cover flor with dry gauze and change daily or more frequently if the dressing is getting saturated with drainage. * Use the KIMBERLY stockings to hold dressing in place. DO NOT apply tape on the skin. * May completely stop using bandage if wound is dry and no drainage * Flor are removed between 2 and 3 weeks post-op. If your follow-up appointment is made before 2 weeks, please have your appointment re- scheduled. It is too early to remove the flor. Prevention of Infection: * Take antibiotics one hour before any dental cleaning, dental work, urological procedure, gastrointestinal procedure or any invasive surgery in order to prevent your new joint from getting infected. * You may get the antibiotics from the doctor performing the procedure or you may call our office at [phone] before and we will call in a prescription to the pharmacy of your choice. Things to Watch For: * Drainage from the incision site that occurs more than one week after your surgery. * Severely increased knee/leg pain or swelling. * Increased redness at the incision site. * Fever above 102 degrees Fahrenheit. * Unusual chest pain or shortness of breath. * Unusual pain or burning with urination. Call [facility] at [phone] with any of the above problems or if you have any questions about your medicines or recovery. FOLLOW UP VISIT: Make an appointment to see your doctor for approximately two weeks after surgery for a progress check and staple removal by calling the office at [phone]. Pending Studies at Discharge: No Stand-Alone Forms: My [facility], Smoking Cessation Medications and DC Order Prescriptions: Continued amoxicillin 500 mg tablet 2,000 mg PO ONCE Qty: 4 3RF Rx Instructions: 4 tabs 1 hour prior to procedure oxycodone 5 mg tablet 5 - 10 mg PO Q6 PRN (Reason: pain) Qty: 40 0RF Rx Instructions: Take as needed for pain ondansetron 4 mg tablet,disintegrating 4 mg PO Q8 PRN (Reason: nausea) Qty: 20 1RF Rx Instructions: Take as needed for nausea ketorolac 10 mg tablet 10 mg PO Q6 5 Days Qty: 20 0RF Rx Instructions: Take 4 times per day with food for 5 days to lessen pain and swelling. sennosides [Senokot] 8.6 mg tablet 8.6 mg PO BID 14 Days Qty: 28 0RF Rx Instructions: Take two times a day to prevent/treat constipation aspirin [Santy Low Dose Aspirin] 81 mg tablet,delayed release (DR/EC) 81 mg PO BID 45 Days Qty: 90 0RF Rx Instructions: Take to prevent blood clots. cefadroxil 500 mg capsule 500 mg PO BID 7 Days Qty: 14 0RF Rx Instructions: Take 1 cap twice a day to prevent infection tamsulosin [Flomax] 0.4 mg capsule 0.4 mg PO DAILY Qty: 7 0RF Rx Instructions: Begin night BEFORE surgery to prevent urinary retention acetaminophen [Tylenol Extra Strength] 500 mg tablet 1,000 mg PO TID 30 Days Qty: 180 0RF Rx Instructions: Take 3 times per day to lessen pain. multivitamin Tablet 1 tab PO QAM cetirizine [Zyrtec] 10 mg Tablet 10 mg PO HS montelukast [Singulair] 10 mg Tablet 10 mg PO HS Pulmicort Flexhaler 180 mcg/actuation Aerosol Powdr Breath Activated 1 inh INHALATION BID pravastatin 20 mg tablet 20 mg PO HS albuterol sulfate 90 mcg/actuation HFA aerosol inhaler 2 puff INHALATION Q4H PRN (Reason: Shortness Of Breath Or Wheezing) turmeric root extract 500 mg Capsule 500 mg PO QAM Patient Comments: w/curcumin Discontinued aspirin [Aspir-Low] 81 mg Tablet,Delayed Release (Dr/Ec) 81 mg PO HS acetaminophen [Tylenol Extra Strength] 500 mg Tablet 1,000 mg PO Q6H PRN (Reason: Pain) ondansetron 4 mg tablet,disintegrating 4 mg PO Q4H PRN (Reason: nausea and vomiting) Qty: 8 0RF Admission Data Admit Date/Time: 06/16/23 15:04 Attending Provider: Richie Santacruz Admit Provider: Richie Santacruz Primary Care Provider: Kyree Howell Other Providers: [facility] Other Interventions: Discharge Summary Assessment (RN) Last Done: 06/17/23 09:38
== END 2023-06-17 11:34 | disposition home health service (06) ==
LOC: ASU 10:40 → 3W 10:40